=== PATIENT | male | born 1940 | race Caucasian/White ===

== ENCOUNTER → 2016-08-19 | Outpatient (CLI) | payer OTHER ==
[~2016-08-19] MED LIST: ALLEGRA ALLERG180 MG PO; ALLEGRA PO; ALTACE5 M1 PO; ASPIRIN PO; ATENOLOL PO; BAYER CHEWABLE81 MG PO; BENADRYL25 MG PO; CITRACAL200 MG; CITRUCEL500 MG PO; COLACE50 MG PO; CRESTOR PO; FIBER0.52 G PO; FISH OIL 1,0001 CAP PO; FISH OIL 1,001000 MG PO; FLOMAX0.4 M1 PO; HYOSCYAMINE0.375 M4 PO; IMDUR PO; LIVALO4 MG PO; METOPROLOL TAR25 MG PO; MULTI VITAMIN1 EACH PO; MULTI-DAY VITAM1 TAB PO; NEURONTIN PO; NIACIN50 MG PO; NITROGYLCERIN SUBLINGUAL; PHENERGAN PO; PLAVIX PO; PRILOSEC PO; PRILOSEC20 M1 PO; STOOL SOFTENER100 M1 PO; TOPAMAX50 MG PO; VITAMIN D 4001 UDTAB PO; WELCHOL625 MG PO; ZETIA PO
--- NOTE | ~2016-08-19 | CT2 ---
[facility] A Service of [facility] & [facility] RADIOLOGY TEXT RESULTS PATIENT: MERCEDES GE PHD LOCATION: [facility] : 40 UNIT #: [id number] AGE: [address]: Vishnu Del Real MD SEX: M ORDER DR: [id number] [facility] [address] [place], [place] [address] [id number] O MR#: [id number] Acc #: [id number] NAME: MERCEDES GE : 1940 SEX: M STUDY DATE/TIME: 08/19/2016 9:15 UNIT: [facility] ROOM: STUDY DESCRIPTION: CT Abd and Pelv W Cont Attending Physician: Vishnu Del Real M.D. Referring Physician: Vishnu Del Real M.D. Ordering Physician: Vishnu Del Real M.D. Primary Care Physician: Leigh Ann Clement M.D. MEDICAL IMAGING REPORT This report is preliminary unless electronic signature is present EXAM CT of the abdomen and pelvis with contrast. INDICATION Prostate cancer. Patient has had breast cancer since 2007 and his PSA has been increasing. He does have a history of left lung nodules. TECHNIQUE Axial CT images were obtained from the dome of the diaphragm to the symphysis pubis following the administration of oral and intravenous contrast material. This CT exam was performed with one or more of the following radiation dose reduction techniques: automatic exposure control, adjustment of mA and/or kV according to patient size, and iterative reconstruction. The patient's CT of the chest has been dictated separately. FINDINGS The stomach and proximal small bowel appear within normal limits, as are the adrenal glands, pancreas, spleen and gallbladder. Liver also appears unremarkable. There is an inferior pole right renal cyst measuring up to 5.6 x 5.1 cm. This is larger than on the prior study but again, this has the appearance of a simple cyst. There is no evidence mechanical bowel obstruction. Prostate gland appears unremarkable as does the urinary bladder. There is some colonic diverticulosis without any evidence of diverticulitis. I don't see any free fluid or adenopathy within the pelvis. Review of bony windows does not demonstrate any aggressive osseous abnormality. No sclerotic suspicious lesions are seen to suggest osseous metastatic disease. Soft tissue nodule seen within the right gluteal region was present on the prior study from June of 2009, and probably is not significantly changed. The patient is noted to have some moderate narrowing of the superior STS. [facility] A Service of [facility] & [facility] RADIOLOGY TEXT RESULTS PATIENT: MER[id number] UNIT #: [id number] AGE: [address]: Vishnu Del Real MD SEX: M ORDER DR: mesenteric artery, and there is some atherosclerotic involvement of the abdominal aorta. IMPRESSION No convincing evidence of recurrent or residual disease. No metastatic foci identified. Dictated by... Sary Pereira M.D. THIS IS AN ELECTRONICALLY VERIFIED REPORT Sary Pereira M.D. at 08/23/2016 10:42 PM JOHN/travis TD: 08/19/2016 17:17 JOB #: [id number] MEDICAL IMAGING REPORT Page 1 of 1 COPY
--- NOTE | ~2016-08-19 | CR58 ---
[facility] A Service of [facility] & [facility] RADIOLOGY TEXT RESULTS PATIENT: MERCEDES GE PHD LOCATION: [facility] : 40 UNIT #: [id number] AGE: [address]: Vishnu Del Real MD SEX: M ORDER DR: [id number] [facility] [address] [place], [place] [address] [id number] O MR#: [id number] Acc #: [id number] NAME: MERCEDES GE : 1940 SEX: M STUDY DATE/TIME: 08/19/2016 11:44 UNIT: [facility] ROOM: STUDY DESCRIPTION: CR Cervical Spine 2 or 3 Views Attending Physician: Vishnu Del Real M.D. Referring Physician: Vishnu Del Real M.D. Ordering Physician: Vishnu Del Real M.D. Primary Care Physician: Leigh Ann Clement M.D. MEDICAL IMAGING REPORT This report is preliminary unless electronic signature is present EXAM Cervical spine series 6 views HISTORY Prostate cancer with abnormal bone scan, hot spot comparison. FINDINGS There is no bone erosion or destruction. There is normal alignment and mild discogenic change at 5-6 but no acute abnormality is seen. Incidentally noted atherosclerotic vascular calcification at the left cervical carotid bifurcation. IMPRESSION Radiographically mild degenerative change without acute abnormality, no lytic or blastic lesions. Dictated by... Yaw Camacho M.D. THIS IS AN ELECTRONICALLY VERIFIED REPORT Yaw Camacho M.D. at 08/23/2016 12:14 PM RICH/karen TD: 08/19/2016 15:03 JOB #: [id number] MEDICAL IMAGING REPORT Page 1 of 1 COPY
--- NOTE | ~2016-08-19 | NM8 ---
[facility] A Service of [facility] & [facility] RADIOLOGY TEXT RESULTS PATIENT: MERCEDES GE PHD LOCATION: [facility] : 40 UNIT #: [id number] AGE: [address]: Vishnu Del Real MD SEX: M ORDER DR: [id number] [place] [id number] [facility] [place], [place] [address] [id number] O MR#: [id number] Acc #: [id number] NAME: MERCEDES GE : 1940 SEX: M STUDY DATE/TIME: 08/19/2016 10:48 UNIT: [facility] ROOM: STUDY DESCRIPTION: WI Bone or Joint Whole Body Attending Physician: Vishnu Del Real M.D. Referring Physician: Vishnu Del Real M.D. Ordering Physician: Vishnu Del Real M.D. Primary Care Physician: Leigh Ann Clement M.D. MEDICAL IMAGING REPORT This report is preliminary unless electronic signature is present EXAM Whole-body bone scan HISTORY 76-year-old male diagnosed with prostate cancer in 2007. Surveillance for metastatic disease. Elevated PSA over the last [address] chest and pelvis, 08/19/2016. Whole-body bone scan June 26, 2007. FINDINGS Whole-body and selected spot images were performed of the axial and appendicular skeleton following the intravenous administration of 29.2 mCi technetium 99m MDP. Examination demonstrates mild increased uptake about the right knee particularly in the region of the patellofemoral joint and tibial tubercle most likely degenerative in nature. No abnormal uptake identified within the long bones, ribs, pelvis or spine to suggest osseous metastatic disease. Bilateral renal activity and normal bladder activity noted. IMPRESSION 1. No bone scan findings to suggest osseous metastatic disease at this time. 2. 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 Dictated by... Barrera Solano M.D. THIS IS AN ELECTRONICALLY VERIFIED REPORT Barrera Solano M.D. at 08/19/2016 4:36 PM JUSTICE/dariel STS. [facility] A Service of [facility] & [facility] RADIOLOGY TEXT RESULTS PATIENT: JOOMERCEDES Pappas PHD LOCATION: [facility] #: [id number] : 40 UNIT #: [id number] AGE: [address]: Vishnu Del Real MD SEX: M ORDER DR: TD: 08/19/2016 15:28 JOB #: [id number] MEDICAL IMAGING REPORT Page 1 of 1 COPY
--- NOTE | ~2016-08-19 | CT55 ---
[facility] A Service of [facility] RADIOLOGY TEXT RESULTS PATIENT: MERCEDES GE PHD LOCATION: [facility] : 40 UNIT #: [id number] AGE: [address]: Vishnu Del Real MD SEX: M ORDER DR: [id number] [facility] [address] [place], [place] [address] [id number] O MR#: [id number] Acc #: [id number] NAME: MERCEDES GE : 1940 SEX: M STUDY DATE/TIME: 08/19/2016 9:15 UNIT: [facility] ROOM: STUDY DESCRIPTION: CT Chest W Con Attending Physician: Vishnu Del Real M.D. Referring Physician: Vishnu Del Real M.D. Ordering Physician: Vishnu Del Real M.D. Primary Care Physician: Leigh Ann Clement M.D. MEDICAL IMAGING REPORT This report is preliminary unless electronic signature is present EXAM CT Chest with contrast HISTORY Prostate cancer diagnosed in 2007 with rising PSA. Additional history of indeterminate left sided lung nodules. TECHNIQUE Axial images were obtained through the chest with contrast. 100 mL of Isovue was used. This CT exam was performed with one or more of the following radiation dose reduction techniques: automatic exposure control, adjustment of mA and/or kV according to patient size, and iterative reconstruction. FINDINGS Chest images at mediastinal window show postoperative changes of CABG. There are no enlarged mediastinal or hilar lymph nodes. There is no evidence of pleural or pericardial fluid. No thoracic compression fractures are seen and no sclerotic lesions are seen in the thoracic vertebrae. Lung window imaging shows mild emphysematous change bilaterally. No suspicious nodules or infiltrates are noted. Mildly prominent interstitial markings are seen peripherally on both sides consistent with mild nonspecific interstitial fibrosis. No honeycombing is seen. IMPRESSION Emphysema with minimal peripheral interstitial fibrosis bilaterally. No suspicious lung masses are seen. No evidence of adenopathy in the mediastinum. No bony lesions are noted. [facility] A Service [facility] RADIOLOGY TEXT RESULTS PATIENT: MERCEDES GE Elyse PHD [id number] 40 UNIT #: [id number] AGE: [address]: Vishnu Del Real MD SEX: M ORDER DR: Dictated by... Keny Payton M.D. THIS IS AN ELECTRONICALLY VERIFIED REPORT Keny Payton M.D. at 08/19/2016 4:28 PM JUD/gloria TD: 08/19/2016 12:14 JOB #: [id number] MEDICAL IMAGING REPORT Page 1 of 1 COPY
[2016-08-19 08:05] LABS: HEMATOCRIT 50.6 % (38.0-50.0); HEMOGLOBIN 16.7 gm/dL (13.0-16.0); MEAN CELL VOLUME 89.7 FL (83-96); MEAN CORPUSCULAR HEMOGLOBIN 29.6 PG (28-34); MEAN CORPUSCULAR HGB CONC 32.9 g/dL (30-36); MEAN PLATELET VOLUME 8.9 FL (6.5-11.5); RED BLOOD COUNT 5.65 X10e (3.90-5.60); RED CELL DISTRIBUTION WIDTH 13.4 % (11.0-15.5)
[2016-08-19 08:38] LABS: ALBUMIN SERUM 4.1 g/dL (3.5-5.0); BILIRUBIN,TOTAL 1.4 mg/dL (0.2-2.0); BUN/CREATININE RATIO 13.63; CALCIUM SERUM 9.1 mg/dL (8.4-10.2); CREATININE SERUM 1.1 mg/dL (0.6-1.4); GLOM FILT RATE Estimated 64.9 mL/min (>60); POTASSIUM 4.4 mmol/L (3.5-5.1); PROTEIN TOTAL SERUM 6.7 g/dL (6.0-8.3)
[2016-08-19 08:41] LABS: TESTOSTERONE TOTAL 366.64 ng/dL (17-781)
== END | disposition home or self-care (01) ==
LOC: CNUC 07:09 → CCAT 10:30
PROVIDERS: Urology
DX: C61 Malignant neoplasm of prostate (principal); J43.9 Emphysema, unspecified; J84.10 Pulmonary fibrosis, unspecified; M47.892 Other spondylosis, cervical region; R97.20 Elevated prostate specific antigen [PSA]
CPT/HCPCS: 36415; 71260; 72040; 74177; 78306; 80053; 84153; 84403; 85027; A9503; Q9967